=== PATIENT | male | born 1980 | race Caucasian/White ===

== ENCOUNTER → 2016-11-24 | Outpatient (REF) | payer BC | LOC: M LAB REF 12:20 | PROVIDERS: ATTEND Physician Assistant Medical | DX: J02.9 Acute pharyngitis, unspecified (principal) ==

== ENCOUNTER → 2016-12-12 | Outpatient (REF) | payer BC ==
[2016-12-12 13:28] LABS: CONTROL LINE MONO INT CTR LINE PRESENT
== END ==
LOC: M LAB REF 12:40
PROVIDERS: ATTEND Physician Assistant Medical
DX: J02.9 Acute pharyngitis, unspecified (principal)

== ENCOUNTER 2019-06-15 08:16 | Emergency (ER) | payer BC, OTHER ==
[~2019-06-15] VITALS: Ht 190.5 cm; Wt 138.1 kg
[2019-06-15] MEDS ORDERED: CALC1TAB42 PO (08:40)
[2019-06-15] MEDS ORDERED: MULTCAP PO (08:40)
[2019-06-15] MEDS ORDERED: VITA500T41 PO (08:40)
[2019-06-15 13:05] LABS: BASO % 0.3 % (0.0-1.0); EOS # 0.1 10^3/uL (0.0-0.50); EOS % 1.1 % (0.0-3.0); HEMATOCRIT 47.6 % (42.0-52.0); HEMOGLOBIN 15.7 g/dl (13.5-17.5); LYMPH # 2.1 10^3/uL (1.5-4.5); LYMPH % 27.3 % (24.0-44.0); MONO # 0.5 10^3/uL (0.0-0.8); MONO % 6.5 % (0.0-5.0); NEUTROPHILS % 64.3 % (36.0-66.0); PLATELET COUNT, AUTOMATED 220 10^3/uL (150-450); RED BLOOD COUNT 5.23 10^6/uL (4.30-6.10); WHITE BLOOD COUNT 7.8 10^3/uL (4.0-10.0)
[2019-06-15 13:52] VITALS: BP 149/83
== END 2019-06-15 13:58 | disposition home or self-care (01) ==
LOC: M ED 08:16
DX: H65.91 Unspecified nonsuppurative otitis media, right ear (principal); L40.9 Psoriasis, unspecified

== ENCOUNTER → 2020-01-28 | Outpatient (REF) | payer OTHER ==
[~2020-01-28] MED LIST: CALC1TAB42 PO; MULTCAP PO; VITA500T41 PO
[2020-01-28 16:20] LABS: BASO % 0.3 % (0.0-1.0); EOS # 0.1 10^3/uL (0.0-0.5); EOS % 1.1 % (0.0-3.0); HEMOGLOBIN 14.7 g/dl (13.5-17.5); LYMPH # 1.8 10^3/uL (1.5-5.0); LYMPH % 25.1 % (24.0-44.0); MEAN CORPUSCULAR HEMOGLOBIN 28.9 pg (27.0-33.0); MEAN CORPUSCULAR HGB CONC 32.7 g/dl (32.0-36.5); MEAN CORPUSCULAR VOLUME 88.6 fl (80.0-96.0); MONO # 0.4 10^3/uL (0.0-0.8); MONO % 5.6 % (0.0-5.0); NEUTROPHILS # 4.8 10^3/uL (1.5-8.5); NEUTROPHILS % 67.3 % (36.0-66.0); PLATELET COUNT, AUTOMATED 233 10^3/uL (150-450); RED BLOOD COUNT 5.08 10^6/uL (4.30-6.10); WHITE BLOOD COUNT 7.2 10^3/uL (4.0-10.0)
[2020-01-28 16:52] LABS: ALBUMIN 3.7 GM/DL (3.2-5.2); ALT/SGPT 48 U/L (12-78); BILIRUBIN,TOTAL 0.9 MG/DL (0.2-1.0); BLOOD UREA NITROGEN 18 MG/DL (7-18); CALCIUM LEVEL 8.4 MG/DL (8.5-10.1); CARBON DIOXIDE LEVEL 28 MEQ/L (21-32); CHLORIDE LEVEL 105 MEQ/L (98-107); CHOLESTEROL LEVEL 153 MG/DL (<200); CHOLESTEROL RISK RATIO 3.642 (<5); CREATININE FOR GFR 0.87 MG/DL (0.70-1.30); FREE T4 0.97 NG/DL (0.76-1.46); GLOMERULAR FILTRATION RATE > 60.0 (>60); GLUCOSE, FASTING 112 MG/DL (70-100); HDL CHOLESTEROL 42 MG/DL (>40); IRON (FE) 79 UG/DL (65-175); LDL CHOLESTEROL 89 MG/DL (<100); NON-HDL-C 111 MG/DL; PERCENT SATURATION 27.5 % (19.7-50.0); POTASSIUM SERUM 3.8 MEQ/L (3.5-5.1); SODIUM LEVEL 139 MEQ/L (136-145); THYROID STIMULATING HORMONE 0.635 uIU/ML (0.358-3.740); TOTAL IRON BINDING CAPACITY 287 UG/DL (250-450); TOTAL PROTEIN 6.8 GM/DL (6.4-8.2); TRIGLYCERIDES LEVEL 109 MG/DL (<150)
[2020-01-28 16:54] LABS: FOLATE 21.6 NG/ML (>5.4); TOTAL 25(OH) VITAMIN D 20.6 NG/ML (30.0-100.0); VITAMIN B12 LEVEL 820 PG/ML (247-911)
== END ==
LOC: M SFHCADAM 14:49
PROVIDERS: ATTEND Family Medicine
DX: Z00.00 Encounter for general adult medical examination without abnormal findings (principal); Z98.84 Bariatric surgery status

== ENCOUNTER 2020-03-03 11:36 | Emergency (ER) | payer OTHER ==
[~2020-03-03] VITALS: Ht 188 cm; Wt 129.6 kg
[2020-03-03] MEDS ORDERED: NORCO, ANEXSIA 5/325MG TABLET (HYDROcodone/ACETAMINOPHEN) PO ONE (12:30)
[2020-03-03] MEDS ORDERED: LIDOCAINE W/EPINEPHRINE 1% 20ML VIAL SC ONE (12:30)
--- NOTE | 2020-03-03 12:46 | REP ---
Head CT without contrast: History: Pain. Comparison study: No comparison study. CT findings: Bone window settings demonstrate an intact bony calvarium. There is no evidence of skull fracture or incidental bony calvarial lesion. The visualized paranasal sinuses appear clear. No intraorbital abnormality is seen. On soft tissue window setting images; the lateral, third, and fourth ventricles are normal in size and position. Peterson-white differentiation pattern is normal above and below the tentorium. There are is no evidence of intracranial hemorrhage. No mass, edema, infarction, or midline shift is seen. No extra-axial fluid collection is appreciated. Impression: Negative noncontrast head CT. Electronically Signed by Danny Santana MD 03/03/2020 12:38 P
--- NOTE | 2020-03-03 12:48 | REP ---
CT study of the cervical spine without contrast: History: Pain after a fall. Technique: Helical scanning is acquired and overlapping 2 mm high resolution axial images were generated and reviewed at bone and soft tissue window settings. Coronal and sagittal multiplanar re-formations images are generated. CT findings: There is no evidence of cervical spine element fracture. No skull base fracture is seen. Cervical vertebral body heights are preserved. Alignment is normal. Facet joints are normally aligned bilaterally at each cervical level on multiplanar re-formations images. There is no evidence of intraspinal or paraspinal hematoma. No extra vertebral abnormality is seen. Impression: Negative CT study of the cervical spine without contrast. No fracture seen. Electronically Signed by Danny Santana MD 03/03/2020 12:40 P
[2020-03-03] MEDS ORDERED: KEFL500C17 PO (13:30)
[2020-03-03 14:01] VITALS: BP 143/95
--- NOTE | 2020-03-03 14:50 | REP ---
RIGHT LOWER LEG, AP AND LATERAL: There is no evidence of an acute fracture, dislocation, or intrinsic bone disease. No radiopaque foreign body is seen in the soft tissues. IMPRESSION: No fracture or dislocation. Electronically Signed by Ben Peterson MD 03/04/2020 10:12 A
== END 2020-03-03 14:04 | disposition home or self-care (01) ==
LOC: M ED 11:36 → EDBD 11:36 → M ED 14:04
DX: S81.811A Laceration without foreign body, right lower leg, initial encounter (principal); W11.XXXA Fall on and from ladder, initial encounter; Y92.89 Other specified places as the place of occurrence of the external cause; Y93.89 Activity, other specified; Y99.0 Civilian activity done for income or pay; Z98.84 Bariatric surgery status; Z79.899 Other long term (current) drug therapy

== ENCOUNTER 2020-03-07 14:40 | Emergency (ER) | payer OTHER ==
[~2020-03-07] VITALS: Ht 190.5 cm; Wt 139.0 kg
[~2020-03-07 14:40] MED LIST changes: +KEFL500C17 PO
[2020-03-07 14:42] VITALS: BP 132/69
[2020-03-07] MEDS ORDERED: PANT40TA3 (14:48)
--- NOTE | 2020-03-07 16:09 | REP ---
LUMBOSACRAL SPINE, FIVE VIEWS: Five views lumbosacral spine performed. No compression fracture is seen. There is normal lumbar lordosis and alignment. Mild disc space narrowing is noted at L3-4, there is sclerosis of the facets at L5-S1. The posterior elements are intact. IMPRESSION: No acute fracture or dislocation. Electronically Signed by Ben Peterson MD 03/07/2020 04:24 P
== END 2020-03-07 15:45 | disposition home or self-care (01) ==
LOC: M ED 14:40
DX: S39.012A Strain of muscle, fascia and tendon of lower back, initial encounter (principal); S81.801A Unspecified open wound, right lower leg, initial encounter; W11.XXXA Fall on and from ladder, initial encounter; Y92.89 Other specified places as the place of occurrence of the external cause; Y93.89 Activity, other specified; Y99.0 Civilian activity done for income or pay; Z79.899 Other long term (current) drug therapy; Z79.2 Long term (current) use of antibiotics

== ENCOUNTER → 2020-04-25 | Outpatient (CLI) | payer OTHER ==
[~2020-04-25] MED LIST changes: +PANT40TA3 PO
== END ==
LOC: M LABSMTC 10:39
PROVIDERS: ATTEND Anesthesiology
DX: Z11.59 Encounter for screening for other viral diseases (principal)
CPT/HCPCS: C9803; U0003

== ENCOUNTER 2020-04-28 07:53 | Day surgery (SDC) | payer OTHER ==
[~2020-04-28] VITALS: Ht 190.5 cm; Wt 140.2 kg
[~2020-04-28 07:53] MED LIST changes: +NS 1,000 ML IV ONE
[2020-04-28] MEDS ORDERED: propofoL 200 MG/20 ML VIAL As Ordered ONE (08:55)
[2020-04-28] MEDS ORDERED: LIDOCAINE 2% 100MG/5ML SDV (FOR ANES.) As Ordered ONE (08:55)
[2020-04-28] MEDS ORDERED: fentaNYL 100 MCG/2 ML INJECTION (J3010) As Ordered ONE (09:10)
--- NOTE | 2020-04-28 09:43 | ROOR ---
Patient Name: Philippe Orlando Procedure Date: 04/28/2020 9:06 AM Date of : 1980 Age: 39 Room: [facility] Gender: Male Note Status: Finalized Procedure: Upper GI endoscopy Indications: Epigastric abdominal pain Providers: Stan Ayon MD Referring MD: Guillermina ROLLE DO Requesting Provider: Medicines: Monitored Anesthesia Care Complications: No immediate complications. Procedure: Pre-Anesthesia Assessment: - Prior to the procedure, a History and Physical was performed, and patient medications and allergies were reviewed. The patient is competent. The risks and benefits of the procedure and the sedation options and risks were discussed with the patient. All questions were answered and informed consent was obtained. Patient identification and proposed procedure were verified by the physician, the nurse and the anesthesiologist in the procedure room. Mental Status Examination: alert and oriented. Airway Examination: normal oropharyngeal airway and neck mobility. Respiratory Examination: clear to auscultation. CV Examination: normal. Prophylactic Antibiotics: The patient does not require prophylactic antibiotics. Prior Anticoagulants: The patient has taken no previous anticoagulant or antiplatelet agents. ASA Grade Assessment: II - A patient with mild systemic disease. After reviewing the risks and benefits, the patient was deemed in satisfactory condition to undergo the procedure. The anesthesia plan was to use monitored anesthesia care (MAC). Immediately prior to administration of medications, the patient was re-assessed for adequacy to receive sedatives. The heart rate, respiratory rate, oxygen saturations, blood pressure, adequacy of pulmonary ventilation, and response to care were monitored throughout the procedure. The physical status of the patient was re-assessed after the procedure. The Endoscope was introduced through the mouth, and advanced to the afferent and efferent jejunal loops. The upper GI endoscopy was accomplished without difficulty. The patient tolerated the procedure well. Findings: The examined esophagus was normal. The Z-line was regular and was found 40 cm from the incisors. 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 The gastrojejunal anastomosis was characterized by healthy appearing mucosa and an intact staple line. This was traversed. The plazn-qt-yglsdqa limb was characterized by healthy appearing mucosa. The jejunojejunal anastomosis was characterized by healthy appearing mucosa. The rcrxsrfe-cz-wxdsrqm limb was not examined as it could not be reached. Three biopsies were obtained in the stomach with cold forceps for histology and Helicobacter pylori testing. Verification of patient identification for the specimen was done by the physician and nurse using the patient's name, date and medical record number. Estimated blood loss was minimal. Normal mucosa was found in the jejunum. Biopsies for histology were taken with a cold forceps for evaluation of celiac disease. Impression: - Normal esophagus. - Z-line regular, 40 cm from the incisors. - Nell-en-Y gastrojejunostomy with gastrojejunal anastomosis characterized by healthy appearing mucosa and an intact staple line. - Normal mucosa was found in the jejunum. Biopsied. - Three biopsies were obtained in the stomach. Recommendation: - Patient has a contact number available for emergencies. The signs and symptoms of potential delayed complications were discussed with the patient. Return to normal activities tomorrow. Written discharge instructions were provided to the patient. - Post gastric bypass diet (small frequent meals and avoid fatty/ fried foods). - Continue present medications. - Follow an antireflux regimen. - Await pathology results. - Telephone GI clinic for pathology results in 2 weeks. - Return to primary care physician. Stan Ayon MD Stan Ayon MD 04/28/2020 9:42:50 AM Electronically signed by Stan Ayon MD Number of Addenda: 0 Note Initiated On: 04/28/2020 9:06 AM Estimated Blood Loss: Estimated blood loss was minimal.
[2020-04-28 09:52] VITALS: BP 124/80
== END 2020-04-28 10:13 | disposition home or self-care (01) ==
LOC: M OPP 07:53
PROVIDERS: ATTEND Internal Medicine Gastroenterology
DX: R10.13 Epigastric pain (principal); Z98.0 Intestinal bypass and anastomosis status; Z98.84 Bariatric surgery status
CPT/HCPCS: 43239; 88305; J3010

== ENCOUNTER → 2022-11-26 | Outpatient (CLI) | payer BC ==
[~2022-11-26] MED LIST changes: -NS 1,000 ML IV ONE; +PANT40TA29 PO; -PANT40TA3 PO
[2022-11-26 16:26] LABS: ALBUMIN 3.8 G/DL (3.2-5.2); BILIRUBIN,DIRECT 0.3 MG/DL (<0.4); PHOSPHORUS LEVEL 3.9 MG/DL (2.5-4.9)
== END ==
LOC: M PLALAB 13:08
PROVIDERS: ATTEND Nurse Practitioner Family
DX: L40.0 Psoriasis vulgaris (principal)

== ENCOUNTER → 2023-02-28 | Outpatient (REF) | payer BC ==
[2023-02-28 17:42] LABS: FERRITIN 226.2 NG/ML (10.5-307.3)
[2023-02-28 17:44] LABS: C REACTIVE PROTEIN QUANTITATIV < 0.40 MG/DL (<1.0)
[2023-02-28 17:45] LABS: IRON (FE) 67 UG/DL (65-175)
[2023-02-28 17:46] LABS: PERCENT SATURATION 21.2 % (19.7-50.0); TOTAL IRON BINDING CAPACITY 316 UG/DL (250-425)
[2023-02-28 18:09] LABS: VITAMIN B12 LEVEL 565 PG/ML (211-911)
== END ==
LOC: M LAB REF 16:10
PROVIDERS: ATTEND Internal Medicine
DX: Z98.84 Bariatric surgery status (principal); L40.50 Arthropathic psoriasis, unspecified

== ENCOUNTER → 2023-04-07 | Outpatient (REF) | payer BC | LOC: M LAB REF 12:21 | PROVIDERS: ATTEND Internal Medicine | DX: Z98.84 Bariatric surgery status (principal); N52.9 Male erectile dysfunction, unspecified ==

== ENCOUNTER → 2023-11-15 | Outpatient (CLI) | payer BC ==
[2023-11-15 13:58] LABS: ALBUMIN 3.7 G/DL (3.2-5.2); ALKALINE PHOSPHATASE 72 U/L (46-116); ALT/SGPT 41 U/L (7.0-40); AST/SGOT 19 U/L (<34); BILIRUBIN,DIRECT 0.2 MG/DL (<0.4); BILIRUBIN,TOTAL 0.7 MG/DL (0.3-1.2); BLOOD UREA NITROGEN 19 MG/DL (9-23); CALCIUM LEVEL 9.1 MG/DL (8.5-10.1); CARBON DIOXIDE LEVEL 32 MMOL/L (20-31); CHLORIDE LEVEL 103 MMOL/L (98-107); CREATININE FOR GFR 0.88 MG/DL (0.70-1.30); GLOMERULAR FILTRATION RATE > 60.0 (>60); GLUCOSE, FASTING 90 MG/DL (60-100); PHOSPHORUS LEVEL 3.7 MG/DL (2.5-4.9); POTASSIUM SERUM 4.6 MMOL/L (3.5-5.1); SODIUM LEVEL 138 MMOL/L (136-145); TOTAL PROTEIN 7.4 G/DL (5.7-8.2)
[2023-11-15 13:59] LABS: BASO % 0.4 % (0.0-1.0); EOS # 0.1 10^3/uL (0.0-0.5); EOS % 1.2 % (0.0-3.0); HEMATOCRIT 47.9 % (42.0-52.0); HEMOGLOBIN 15.6 g/dl (13.5-17.5); LYMPH # 1.8 10^3/uL (1.5-5.0); LYMPH % 23.3 % (24.0-44.0); MEAN CORPUSCULAR HGB CONC 32.6 g/dl (32.0-36.5); MONO # 0.5 10^3/uL (0.0-0.8); MONO % 6.3 % (2.0-8.0); NEUTROPHILS # 5.3 10^3/uL (1.5-8.5); NEUTROPHILS % 68.3 % (36.0-66.0); PLATELET COUNT, AUTOMATED 266 10^3/uL (150-450); RED BLOOD COUNT 5.38 10^6/uL (4.30-6.10); WHITE BLOOD COUNT 7.7 10^3/uL (4.0-10.0)
[2023-11-15 14:08] LABS: HEPATITIS B SURFACE ANTIBODY NEGATIVE (POSITIVE)
[2023-11-15 14:31] LABS: HIV 1&2 SCREEN NEGATIVE (NEGATIVE)
[2023-11-15 14:38] LABS: HEPATITIS C VIRUS ABY INDEX 0.02 INDEX (<0.8)
== END ==
LOC: M PLALAB 11:13
PROVIDERS: ATTEND Nurse Practitioner Family
DX: Z51.81 Encounter for therapeutic drug level monitoring (principal); Z79.899 Other long term (current) drug therapy; L40.0 Psoriasis vulgaris

== ENCOUNTER → 2024-12-25 | Outpatient (CLI) | payer BC ==
[~2024-12-25] MED LIST changes: +CALC600T61 PO; +MIRA3350 PO; +THERTAB52 PO; +TREM100I SC; +VITA100093 PO
[2024-12-25 14:21] LABS: BASO % 0.4 % (0.0-1.0); EOS # 0.1 10^3/uL (0.0-0.5); HEMOGLOBIN 15.4 g/dl (13.5-17.5); LYMPH # 1.8 10^3/uL (1.5-5.0); LYMPH % 23.3 % (24.0-44.0); MEAN CORPUSCULAR HEMOGLOBIN 28.7 pg (27.0-33.0); MEAN CORPUSCULAR HGB CONC 32.8 g/dl (32.0-36.5); MEAN CORPUSCULAR VOLUME 87.5 fl (80.0-96.0); MONO # 0.5 10^3/uL (0.0-0.8); MONO % 6.4 % (2.0-8.0); NEUTROPHILS # 5.3 10^3/uL (1.5-8.5); NEUTROPHILS % 68.5 % (36.0-66.0); PLATELET COUNT, AUTOMATED 260 10^3/uL (150-450); RED BLOOD COUNT 5.37 10^6/uL (4.30-6.10); WHITE BLOOD COUNT 7.7 10^3/uL (4.0-10.0)
[2024-12-25 14:24] LABS: ALBUMIN 3.9 G/DL (3.2-5.2); ALKALINE PHOSPHATASE 74 U/L (40-129); ALT/SGPT 58 U/L (7.0-40); AST/SGOT 32 U/L (<34); BILIRUBIN,TOTAL 1.1 MG/DL (0.3-1.2); BLOOD UREA NITROGEN 16 MG/DL (9-23); CALCIUM LEVEL 9.1 MG/DL (8.5-10.1); CARBON DIOXIDE LEVEL 30 MMOL/L (20-31); CHLORIDE LEVEL 101 MMOL/L (98-107); CREATININE FOR GFR 0.86 MG/DL (0.70-1.30); GLOMERULAR FILTRATION RATE > 60.0 (>60); GLUCOSE, FASTING 94 MG/DL (60-100); POTASSIUM SERUM 4.2 MMOL/L (3.5-5.1); SODIUM LEVEL 138 MMOL/L (136-145); TOTAL PROTEIN 7.3 G/DL (5.7-8.2)
[2024-12-25 14:42] LABS: HEPATITIS B SURFACE ANTIGEN NEGATIVE (NEGATIVE)
[2024-12-25 14:54] LABS: HIV 1&2 SCREEN NEGATIVE (NEGATIVE)
[2024-12-26 13:07] LABS: HEPATITIS A IgG TOTAL REACTIVE (NON-REACTIVE)
== END ==
LOC: M PLALAB 10:29
PROVIDERS: ATTEND Nurse Practitioner Family
DX: Z51.81 Encounter for therapeutic drug level monitoring (principal); Z79.899 Other long term (current) drug therapy; L40.0 Psoriasis vulgaris